=== PATIENT | male | born 1990 | race Caucasian/White ===

== ENCOUNTER 2020-09-05 09:46 | Emergency (ER) | payer SELFPAY ==
[~2020-09-05] VITALS: Ht 177.8 cm; Wt 135.0 kg
[2020-09-05 09:58] VITALS: BP 127/83
--- NOTE | 2020-09-05 10:10 | NUR ---
pt presents to ed from [facility] with c/o paranoia, hearing voices, and SI. hx of bipolar and schizophrenia. pt a&o, resps even and unlabored, vss, nadn. doors down, safety precautions in place.
--- NOTE | 2020-09-05 10:24 | NUR ---
slag production worker at bedside for eval.
--- NOTE | 2020-09-05 10:24 | NUR ---
Note walt in [facility] - 09/05/20 at 1035 by AMY Psych GLOVE FORMER at bedside for eval Addendum: 09/05/20 at 1034 by AMY Amendment walt in [facility] - 09/05/20 at 1035 by AMY bench worker helper at bedside for eval.
[2020-09-05 10:58] LABS: BASOPHILS % (AUTO) 0 % (0-1); EOSINOPHILS % (AUTO) 0 % (1-7); LYMPHOCYTES % (AUTO) 8 % (22-44); MEAN CORPUSCULAR HEMOGLOBIN 29.9 pg (27.5-34.5); MEAN CORPUSCULAR HGB CONC 34.5 g/dL (33.2-36.2); MEAN PLATELET VOLUME 7.2 fL (7.4-10.4); MONOCYTES % (AUTO) 7 % (2-9); NEUTROPHILS % (AUTO) 85 % (42-75); PLATELET COUNT 415 x10^3/uL (130-400); RED BLOOD COUNT 4.33 x10^6/uL (4.38-5.82); RED CELL DISTRIBUTION WIDTH 14.9 % (9.4-14.8)
--- NOTE | 2020-09-05 11:00 | NUR ---
ua sent to lab
--- NOTE | 2020-09-05 11:01 | NUR ---
Preceptor RN: lara Perez OPERATIONS ASSOCIATE at bedside.
[2020-09-05 11:09] LABS: ALANINE AMINOTRANSFERASE 29 U/L (12-78); ALBUMIN 3.9 g/dL (3.4-5.0); ANION GAP 9 mmol/L (5-15); CALCIUM 9.4 mg/dL (8.5-10.1); CHLORIDE 105 mmol/L (98-107); CREATININE 0.64 mg/dL (0.7-1.3)
[2020-09-05 11:11] LABS: ALKALINE PHOSPHATASE 93 U/L (45-117); BILIRUBIN,TOTAL 0.7 mg/dL (0.2-1.0); TOTAL PROTEIN 7.6 g/dL (6.4-8.2)
[2020-09-05 11:17] LABS: SALICYLATE LEVEL < 1.7 mg/dL (2.8-20.0)
--- NOTE | 2020-09-05 12:09 | NUR ---
per BALJINDER Perez, pt is cleared and no longer on a hold. pt declining treatment at [facility].
--- NOTE | 2020-09-05 12:35 | NUR ---
This RN at bedside with BALJINDER Perez. Pt agreeable to [facility] plan to [facility] after BALJINDER Perez spoke with girlfriend and pt understood that Alia wanted him to go to [facility]. Pt then changed his mind and stated, "no I'm not going to go to [facility], you're going to need to call the police." Security called to bedside, pt ambulatory to d/c with escort.
[2020-09-05] MEDS ORDERED: QUET200T4 PO (21:22)
== END 2020-09-05 12:39 | disposition home or self-care (01) ==
LOC: ED 10:56
DX: F19.14 Other psychoactive substance abuse with psychoactive substance-induced mood disorder (principal); R94.31 Abnormal electrocardiogram [ECG] [EKG]
CPT/HCPCS: 36415; 80053; 80299; 80320; 80329; 85025; 93005; 99284; G0480

== ENCOUNTER 2020-09-05 14:04 | Emergency (ER) | payer BC, MEDICAID ==
[~2020-09-05] VITALS: Ht 180.3 cm; Wt 70.0 kg
[2020-09-05] MEDS ORDERED: OLANZAPINE 10 MG TABLET ONE (14:21)
--- NOTE | 2020-09-05 14:24 | NUR ---
This RN at bedside earlier today when this pt was evaluated by lara GALE and cleared from [facility] as he stated he was willing to receive outside treatment at [facility]. Pt then told this RN to call the police because he refused to leave the premises. Pt then reported SI/HI to [employer] officer. [employer] placed new [facility]. MD Kaplan, Chris GALE and this RN all at bedside for initial pt eval. Pt states "I need to be put on a 72 hour hold, I have no where else to go."
[2020-09-05] MEDS ORDERED: OLANZAPINE 10 MG TABLET PO SCH (14:30)
[2020-09-05 14:37] LABS: BASOPHILS % (AUTO) 0 % (0-1); EOSINOPHILS % (AUTO) 0 % (1-7); LYMPHOCYTES % (AUTO) 10 % (22-44); MEAN CORPUSCULAR HEMOGLOBIN 29.9 pg (27.5-34.5); MEAN CORPUSCULAR HGB CONC 34.4 g/dL (33.2-36.2); MEAN PLATELET VOLUME 7.4 fL (7.4-10.4); MONOCYTES % (AUTO) 8 % (2-9); NEUTROPHILS % (AUTO) 82 % (42-75); PLATELET COUNT 416 x10^3/uL (130-400); RED BLOOD COUNT 4.37 x10^6/uL (4.38-5.82); RED CELL DISTRIBUTION WIDTH 14.8 % (9.4-14.8)
--- NOTE | 2020-09-05 14:46 | NUR ---
This RN verified KNDA prior to med arrival.
[2020-09-05 14:49] LABS: ALANINE AMINOTRANSFERASE 32 U/L (12-78); ANION GAP 6 mmol/L (5-15); CHLORIDE 105 mmol/L (98-107); CREATININE 0.68 mg/dL (0.7-1.3)
[2020-09-05 14:51] LABS: ALKALINE PHOSPHATASE 100 U/L (45-117); BILIRUBIN,TOTAL 0.8 mg/dL (0.2-1.0); TOTAL PROTEIN 7.5 g/dL (6.4-8.2)
[2020-09-05 14:53] LABS: SALICYLATE LEVEL < 1.7 mg/dL (2.8-20.0)
--- NOTE | 2020-09-05 15:02 | NUR ---
Task RN: Pt currently resting on [place]. No acute distress noted at this time. Pt requesting medications. Pt has been recently medicated by primary RN. Garage doors down in room. Bed in low and locked position. Call light within reach.
--- NOTE | 2020-09-05 16:36 | NUR ---
PT RESTING IN BED, A&O, RESPS EVEN AND UNLABORED, NADN. GARAGE DOORS DOWN, SITTER AT BEDSIDE.
[2020-09-05] MEDS ORDERED: ZIPRASIDONE 20 MG INJ IM ONE ×2 (17:00→17:32)
[2020-09-05 18:03] LABS: AMPHETAMINE SCREEN, URINE Negative (Negative); BARBITURATE SCREEN, URINE Negative (Negative); BENZODIAZEPINE SCREEN, URINE Negative (Negative); CANNABINOID SCREEN, URINE Negative (Negative); COCAINE SCREEN, URINE Negative (Negative); METHADONE SCREEN, URINE Positive (Negative); OPIATE SCREEN, URINE Negative (Negative)
--- NOTE | 2020-09-05 18:27 | NUR ---
PACKET FAXED TO [facility], [facility] AND [facility]
--- NOTE | 2020-09-05 18:52 | NUR ---
report given to cierra whitt
--- NOTE | 2020-09-05 19:03 | NUR ---
KEYONNA RN: Donald NAZARIO at [facility], Dr. Agarwal will accept patient.
--- NOTE | 2020-09-05 19:06 | NUR ---
gave report to pura from [facility]. Contact # [phone]
--- NOTE | 2020-09-05 19:23 | NUR ---
marv reported that they will accept pt. Addendum: 09/05/20 at 1923 by [email or web address] DJ
--- NOTE | 2020-09-05 19:24 | NUR ---
PT GIVEN FOOD AND WATER. SAFETY PRECAUTIONS PUT INTO PLACE. GARAGE DOORS SECURED. SITTER IN LINE OF SIGHT FOR SAFETY MONITORING. PERSONAL BELONGINGS IN LOCKERS.
--- NOTE | 2020-09-05 19:56 | NUR ---
Per dayshift paper documentation, restraints d/c at 1530.
--- NOTE | 2020-09-05 20:20 | NUR ---
PT RESTING IN BED. PT CONDITION UNCHANGED. NADN
--- NOTE | 2020-09-05 21:19 | NUR ---
GAVE REPORT TO HUGO FROM [place]. PT STSATED HE TAKES 200 MG OF SEROQUEL DAILY BUT HASNT TAKEN IT IN 2-3 DAYS. PT CONDITION UNCHANGED. NADN. SAME SAFTEY PRECAUITONS PUT INTO PLACE. BED IN LOW POSITION, CALL LIGHT WITHIN REACH, RAILS ENGAGED.
--- NOTE | 2020-09-05 21:21 | NUR ---
PT ASKED ME IF I WAS GOING TO HURT HIM STATING THAT HE THINKS EVERYONE WANTS TO HURT HIM AND OUT TO GET HIM
[2020-09-05] MEDS ORDERED: QUET200T4 PO (21:22)
--- NOTE | 2020-09-05 21:57 | NUR ---
gave report to ems crew.
--- NOTE | 2020-09-05 22:06 | NUR ---
PT WALKED OUT TO EMS VEHICLE WITH STEADY GAIT. PT AMBULATED BACK TO ROOM WITH STEADY GAIT. PT RESTING IN BED. NADN. PERSONAL BELONGING LOCKED IN LOCKERS. GARAGE DOORS SECURED. SITTER IN LINE OF SIGHT FOR SAFETY MONITORING. BED IN LOW POSITION, RAILS ENGAGED. NON SLIP SOCKS GIVEN PRIIOR TO WALK OUT TO EMS VEHICLE. WCTM.
--- NOTE | 2020-09-05 22:08 | NUR ---
Spoke with Mindy at [facility] who states they are not accepting patient until 0100. Patient returned to room; awaiting [facility] transport at 0100.
--- NOTE | 2020-09-05 22:45 | NUR ---
Patient is resting comfortably in bed. Bed in lowest, rails engaged, call light on lap. Vital Signs within normal limits. WCTM. SAFETY PRECAUTIONS IN PLACE
--- NOTE | 2020-09-06 00:01 | NUR ---
Patient is resting comfortably in bed. Bed in lowest, rails engaged, call light on lap. Vital Signs within normal limits. WCTM. SAFETY PRECAUTIONS IN PLACE, SITTER IN LINE OF SIGHT. GARAGE DOORS SECURED. FOOD TRAY ON BED. PT WAITING TO EAT WHEN HE IS HUNGRY. NO ADDTIONAL NEEDS OR QUESTIONS AT THIS TIME. LINDY
[2020-09-06 01:14] VITALS: BP 127/95
--- NOTE | 2020-09-06 01:14 | NUR ---
PT TRANSFERRED TO [facility]. GAVE REPORT EARLIER TO ESTELLE. PT AMBULATED TO AMBULANCE WITH STEADY GAIT. EMS GIVEN 2/2 BAGS OF PERSONAL BELONGINGS. 1 BAG WAS RED. VSS PRIOR TO TRANSFER.
== END 2020-09-06 01:19 ==
LOC: ED 15:13
DX: R45.851 Suicidal ideations (principal); F22 Delusional disorders; F17.200 Nicotine dependence, unspecified, uncomplicated
CPT/HCPCS: 36415; 80053; 80299; 80307; 80320; 80329; 85025; 99285; G0480